=== PATIENT | female | born 1990 ===

== ENCOUNTER 2021-05-20 11:59 | Outpatient (CLI) | payer OTHER | END 2021-05-20 12:00 | disposition critical access hospital (66) | LOC: EMS 11:59 | DX: F41.9 Anxiety disorder, unspecified (principal) | CPT/HCPCS: A0425; A0427 ==

== ENCOUNTER 2021-05-20 12:38 | Emergency (ER) | payer OTHER ==
--- NOTE | 2021-05-20 12:47 | ED Physician Documentation ---
PD HPI CHEST PAIN - Stated complaint Stated Complaint: CP - Chief complaint Chief Complaint: Cardiac - History obtained from History obtained from: Family - History of Present Illness Timing - onset: How many days ago (10) Timing - onset during: Rest Timing - duration: Days (10) Timing - details: Gradual onset, Still present, Waxing and waning Quality: Pressure, Sharp, Pain Location: Left chest Radiation: Neck Worsened by: Exertion, Inspiration, Palpation Associated symptoms: Shortness of air, Nausea (today), Feeling faint / dizzy. No: Vomiting Similar symptoms before: Has not had sx before Recently seen: Clinic - Additional information Additional information: Previously well 31-year-old female reports a week long history of left-sided chest pain radiating up to her jaw and anterior chest. She has some increase in this with inspiration and if she is doing something. She has some pain to palpation of the chest wall as well. She is currently not experiencing significant pain. She is sent here from the clinic for evaluation. 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 She is on control pill. She reports that she has significant stress in her life especially recently. PD PAST MEDICAL HISTORY - Present Medications Home Medications: Ambulatory Orders Medication Instructions Recorded Confirmed Meloxicam [Mobic] 7.5 mg PO BID PRN #20 tablet 05/20/21 - Allergies Allergies/Adverse Reactions: Allergies Allergy/AdvReac Type Severity Reaction Status Date / Time No Known Drug Allergies Allergy Verified 05/20/21 12:45 PD ED PE NORMAL - Vitals Vital signs reviewed: Yes (normal ) - General General: Alert and oriented X 3, No acute distress, Well developed/nourished - HEENT HEENT: Atraumatic, PERRL, EOMI - Neck Neck: Supple, no meningeal sign, No bony TTP - Cardiac Cardiac: RRR, No murmur - Respiratory Respiratory: No respiratory distress, Clear bilaterally, Other (There is pain to palpation of the chest wall anteriorly over the sternal costal margin on the left side.) - Abdomen Abdomen: Normal bowel sounds, Soft, Non tender, Non distended, No organomegaly - Back Back: No CVA TTP, No spinal TTP - Derm Derm: Normal color, Warm and dry, No rash - Extremities Extremities: No deformity, No edema - Neuro Neuro: Alert and oriented X 3, 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, No motor deficit, No sensory deficit, Normal speech Eye Opening: Spontaneous Motor: Obeys Commands Verbal: Oriented GCS Score: 15 - Psych Psych: Normal mood, Normal affect Results - Vitals Vitals: Vital Signs - 24 hr 05/20/21 05/20/21 12:42 15:05 Temperature 36.2 C L 36.8 C Heart Rate 72 71 Respiratory 14 14 Rate Blood Pressure 106/71 112/84 H O2 Saturation 100 100 Oxygen O2 Source Room air - EKG (time done) 1246 Rate: Rate (enter#) (66) Rhythm: NSR Ischemia: Non specific changes (borderline flattening T's) Compare to prior EKG: Old EKG unavailable ( ) Computer interpretation: Agree with computer 1323 Rate: Rate (enter#) (66) Rhythm: NSR Ischemia: Non specific changes (borderline t abnormalities) Compare to prior EKG: Unchanged from prior EKG Computer interpretation: Agree with computer - Labs Labs: Laboratory Tests 05/20/21 05/20/21 05/20/21 11:52 12:52 12:52 WBC 6.4 RBC 4.46 Hgb 13.9 Hct 41.6 MCV 93.3 MCH 31.2 H MCHC 33.4 RDW 13.1 Plt Count 275 MPV 8.4 Neut # (Auto) 3.5 Lymph # (Auto) 2.4 Bay # (Auto) 0.4 Eos # (Auto) 0.1 Baso # (Auto) 0.1 Absolute Nucleated RBC 0.00 Nucleated RBC % 0.0 D-Dimer Sodium 138 Potassium 4.2 Chloride 102 Carbon Dioxide 24 Anion Gap 12.0 BUN 15 Creatinine 0.6 Estimated GFR (MDRD) 117 Glucose 97 Calcium 9.5 Total Bilirubin 0.4 AST 23 ALT 23 Alkaline Phosphatase 42 Troponin I High Sens Total Protein 8.0 Albumin 4.6 Globulin 3.4 Albumin/Globulin Ratio 1.4 Lipase 53 H Serum HCG, Qual NEGATIVE 05/20/21 05/20/21 12:52 13:14 WBC RBC Hgb Hct MCV MCH MCHC RDW Plt Count MPV Neut # (Auto) Lymph # (Auto) Bay # (Auto) Eos # (Auto) Baso # (Auto) Absolute Nucleated RBC Nucleated RBC % D-Dimer 212.0 Sodium Potassium Chloride Carbon Dioxide Anion Gap BUN Creatinine Estimated GFR (MDRD) Glucose Calcium Total Bilirubin AST ALT Alkaline Phosphatase Troponin I High Sens < 2.3 L Total Protein Albumin Globulin Albumin/Globulin Ratio Lipase Serum HCG, Qual - Rads (name of study) chest Radiology: Prelim report reviewed (Impression: No acute pulmonary process.), EMP read indepedently, See rad report PD MEDICAL DECISION MAKING - ED course Complexity details: reviewed results, re-evaluated patient, considered differential, d/w patient ED course: 31-year-old female with a week long history of undulating left-sided chest pain radiating to her chest has chest wall tenderness she has pain with respiration and she is not in distress. Her studies including electrocardiogram chest x-ray D-dimer and troponin are all unremarkable. Departure - Departure Disposition: Home, Self Care Clinical Impression: Chest wall pain Condition: Stable Instructions: ED Chest Pain Costochondritis Follow-Up: [facility] [Provider Group] Prescriptions: Meloxicam [Mobic] 7.5 mg PO BID PRN #20 tablet PRN Reason: chest wall pain Comments: Leunamme, today it appears the pain you are having in your chest is related to inflammation in your chest wall. This usually will take 1 to 2 weeks to clear up and you can take some meloxicam in the meantime for this pain. Make sure you take this with food. Discharge Date/Time: 05/20/21 15:43
[2021-05-20 13:01] LABS: BASOPHILS # (AUTO) 0.1 10^3/uL (0.0-0.1); BASOPHILS % (AUTO) 0.8 %; EOSINOPHILS # (AUTO) 0.1 10^3/uL (0.0-0.7); EOSINOPHILS % (AUTO) 1.4 %; HCT - HEMATOCRIT 41.6 % (37.0-47.0); HGB - HEMOGLOBIN 13.9 g/dL (12.0-16.0); LYMPHOCYTES # (AUTO) 2.4 10^3/uL (1.5-3.5); LYMPHOCYTES % (AUTO) 36.6 %; MEAN CORPUSCULAR HEMOGLOBIN 31.2 pg (27.0-31.0); MEAN CORPUSCULAR HGB CONC 33.4 g/dL (32.0-36.0); MEAN CORPUSCULAR VOLUME 93.3 fL (81.0-99.0); MEAN PLATELET VOLUME 8.4 fL (7.9-10.8); MONOCYTES # (AUTO) 0.4 10^3/uL (0.0-1.0); MONOCYTES % (AUTO) 6.1 %; NEUTROPHILS # (AUTO) 3.5 10^3/uL (1.5-6.6); NEUTROPHILS % (AUTO) 54.8 %; PLT - PLATELET COUNT 275 10^3/uL (130-450); RED BLOOD COUNT 4.46 10^6/uL (4.20-5.40); RED CELL DISTRIBUTION WIDTH 13.1 % (12.0-15.0); WHITE BLOOD COUNT 6.4 x10^3/uL (4.8-10.8)
[2021-05-20 13:15] LABS: ALBUMIN 4.6 g/dL (3.2-5.5); ALBUMIN/GLOBULIN RATIO 1.4 (1.0-2.2); BILIRUBIN,TOTAL 0.4 mg/dL (0.2-1.0); CALCIUM 9.5 mg/dL (8.5-10.3); CREATININE 0.6 mg/dL (0.4-1.0); POTASSIUM 4.2 mmol/L (3.5-5.0)
[2021-05-20 13:40] LABS: HCG,QUALITATIVE BLOOD NEGATIVE
--- NOTE | 2021-05-20 14:14 | XRAY Report ---
PROCEDURE: Chest 1 View X-Ray INDICATIONS: Chest Pain TECHNIQUE: One view of the chest was acquired. COMPARISON: None FINDINGS: Surgical changes and devices: None. Lungs and pleura: No pleural effusions or pneumothorax. Lungs are clear. Mediastinum: Mediastinal contours appear normal. Heart size is normal. Bones and chest wall: No suspicious bony lesions. Overlying soft tissues appear unremarkable. IMPRESSION: No acute pulmonary process. Reviewed by: Kaylah Nicole MD on 05/20/2021 2:12 PM PST Approved by: Kaylah Nicole MD on 05/20/2021 2:12 PM PST Station ID: [id number]
[2021-05-20 15:06] VITALS: BP 112/84
== END 2021-05-20 15:43 | disposition home or self-care (01) ==
LOC: ED 12:38
DX: R07.89 Other chest pain (principal)
CPT/HCPCS: 36415; 80053; 83690; 84484; 84703; 85025; 85379; 93005; 99284

== ENCOUNTER 2021-07-22 08:00 | Outpatient (CLI) | payer OTHER ==
[2021-07-22 16:55] LABS: BILIRUBIN,URINE NEGATIVE (NEGATIVE); GLUCOSE, URINE (UA) NEGATIVE (NEGATIVE); KETONES,URINE (UA) NEGATIVE (NEGATIVE); LEUKOCYTE ESTERASE, URINE NEGATIVE (NEGATIVE); NITRITE,URINE NEGATIVE (NEGATIVE); OCCULT BLOOD,URINE NEGATIVE (NEGATIVE); PH,URINE 7.5 PH (5.0-7.5); PROTEIN,URINE NEGATIVE (NEGATIVE); UROBILINOGEN,URINE 0.2 (NORMAL) E.U./dL (NORMAL)
[2021-07-22 17:14] LABS: CLARITY,URINE SL. CLOUDY (CLEAR)
[2021-07-22 17:44] LABS: AMORPHOUS SEDIMENT,UR Few /LPF; BACTERIA,URINE None Seen /HPF (None Seen); RBC,URINE 0-5 /HPF (0-5); SQUAMOUS EPITHELIAL CELL,UR RARE Squamous (<= Few); WBC,URINE 0-3 /HPF (0-5)
== END 2021-07-22 23:59 ==
LOC: LAB 08:00
PROVIDERS: ATTEND Nurse Practitioner Obstetrics & Gynecology
DX: Z32.01 Encounter for pregnancy test, result positive (principal)
CPT/HCPCS: 81001; 87086

== ENCOUNTER 2021-08-04 13:36 | Outpatient (CLI) | payer OTHER ==
--- NOTE | 2021-08-04 17:02 | Ultrasound Report ---
PROCEDURE: OB First Trimester INDICATIONS: POSITIVE TEST, DATING OUTSIDE/PRIOR DATING DATA: Last menstrual period (LMP): Unknown. LMP-based estimated date of delivery (SARA): Not applicable. First dating scan (date and location): 08/07/2021. Estimated date of delivery (SARA) from first dating scan: 03/03/2022. The below data below was generated using the ultrasound SARA of 03/03/2022 TECHNIQUE: Real-time scanning was performed of the fetus and maternal pelvic organs, with image documentation. COMPARISON: None FINDINGS: Embryo: Single living intrauterine gestation with estimated sonographic gestational age of approxima tely 10 weeks and 0 days based off crown-rump length measurement of 3.14 cm. Normal yolk sac. No elisabeth gestational hemorrhage. Heart rate: 166 bpm. Measurement variability in dating: +/- 4 weeks by LMP, +/- 7 days by mean sac diameter (use before 6 weeks gestation if crown-rump length not able to be measured), +/- 5 days by crown-rump length (6-12 weeks gestation). Maternal organs: Ovaries appear unremarkable.. IMPRESSION: Single living intrauterine gestation with estimated sonographic gestational age of approximately 10 w eeks and 0 days based off crown-rump length measurement. Estimated date of delivery is approximately 03/03/2022 Recommend continued clinical surveillance and follow-up routine second trimester anatomic scree ruma survey. Reviewed by: Jonathon Poe MD on 08/04/2021 5:01 PM PST Approved by: Jonathon Poe MD on 08/04/2021 5:01 PM PST Station ID: [id number]
== END 2021-08-04 13:37 | disposition home or self-care (01) ==
LOC: DI 13:36
PROVIDERS: ATTEND Nurse Practitioner Obstetrics & Gynecology
DX: Z32.01 Encounter for pregnancy test, result positive (principal); Z36.89 Encounter for other specified antenatal screening
CPT/HCPCS: 36415; 85025; 86592; 86762; 86787; 86803; 86850; 86900; 86901; 87340; 87389

== ENCOUNTER 2021-08-05 15:00 | Outpatient (CLI) | payer OTHER ==
[2021-08-06 22:01] LABS: CHLAMYDIA TRACHOMATIS DNA NEGATIVE (NEGATIVE); NEISSERIA GONORRHOEAE DNA NEGATIVE (NEGATIVE); TRICHOMONAS VAGINALIS DNA NEGATIVE (NEGATIVE)
== END 2021-08-05 23:59 | disposition home or self-care (01) ==
LOC: LAB.WC 15:00
PROVIDERS: ATTEND Nurse Practitioner Obstetrics & Gynecology
DX: Z11.3 Encounter for screening for infections with a predominantly sexual mode of transmission (principal)
CPT/HCPCS: 87491; 87591; 87661

== ENCOUNTER 2021-10-02 14:30 | Outpatient (CLI) | payer OTHER ==
[2021-10-02 15:05] LABS: ALBUMIN 3.8 g/dL (3.2-5.5); ALBUMIN/GLOBULIN RATIO 1.1 (1.0-2.2); BILIRUBIN,TOTAL 0.4 mg/dL (0.2-1.0); CALCIUM 8.6 mg/dL (8.5-10.3); CREATININE 0.5 mg/dL (0.4-1.0); POTASSIUM 3.5 mmol/L (3.5-5.0); TOTAL PROTEIN 7.2 g/dL (6.7-8.2)
== END 2021-10-02 14:31 | disposition home or self-care (01) ==
LOC: LAB 14:30
PROVIDERS: ATTEND Obstetrics & Gynecology
DX: O26.899 Other specified pregnancy related conditions, unspecified trimester (principal); L29.9 Pruritus, unspecified
CPT/HCPCS: 36415; 80053; 82542

== ENCOUNTER 2023-03-05 12:52 | Emergency (ER) | payer OTHER ==
[2023-03-05 13:11] VITALS: BP 123/76; O2SAT 100
--- NOTE | 2023-03-05 13:22 | ED Physician Documentation ---
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 denies: Vomiting, Diarrhea Skin: denies: Rash Musculoskeletal: reports: Neck pain (mild but has good ROm of the neck.) Neurologic: reports: Generalized weakness, Headache. denies: Focal weakness, Numbness, Near syncope, Confused, Altered mental status PD PAST MEDICAL HISTORY - Past Medical History Cardiovascular: None Respiratory: None Endocrine/Autoimmune: None - Present Medications Home Medications: Ambulatory Orders Medication Instructions Recorded Confirmed Meloxicam [Mobic] 7.5 mg PO BID PRN #20 tablet 05/20/21 HYDROcod/ACETAM 5/325 [[place] 5/325] 1 ea PO Q6H PRN #10 tablet 03/05/23 Lidocaine Viscous 2% [Xylocaine 5 ml PO Q4H PRN #100 ml 03/05/23 Viscous 2%] Nirmatrelvir/Ritonavir [Paxlovid] 3 tab PO BID 5 Days #1 kit 03/05/23 Ondansetron Odt [Zofran] 4 mg TL Q6H PRN #10 tablet 03/05/23 diphenhydrAMINE ELIXIR [Benadryl 12.5 mg PO Q6H PRN #120 ml 03/05/23 Elixir] - Allergies Allergies/Adverse Reactions: Allergies Allergy/AdvReac Type Severity Reaction Status Date / Time Sulfa (Sulfonamide Allergy Dizziness Verified 03/05/23 12:56 Antibiotics) PD ED PE NORMAL - Vitals Vital signs reviewed: Yes - General General: Alert and oriented X 3, Well developed/nourished - HEENT HEENT: Moist mucous membranes, Pharynx benign - Neck Neck: Supple, no meningeal sign, No adenopathy - Cardiac Cardiac: No murmur. No: RRR (regular but tachycardic. ) - Respiratory Respiratory: Clear bilaterally - Abdomen Abdomen: Normal bowel sounds, Soft, Non tender, Non distended - Derm Derm: Normal color, Warm and dry - Neuro Neuro: Alert and oriented X 3, No motor deficit, Normal speech Results - Vitals Vitals: Vital Signs - 24 hr 03/05/23 12:56 Temperature 37.3 C Heart Rate 110 H Respiratory 16 Rate Blood Pressure 123/76 O2 Saturation 100 Oxygen O2 Source Room air - Labs Labs: Laboratory Tests 03/05/23 03/05/23 14:03 14:03 Nasal Adenovirus (PCR) NOT DETECTED Nasal B. parapertussis DNA (PCR) NOT DETECTED Nasal Coronavir 229E PCR NOT DETECTED Nasal Coronavir HKU1 PCR NOT DETECTED Nasal Coronavir NL63 PCR NOT DETECTED Nasal Coronavir OC43 PCR NOT DETECTED Nasal Enterovir/Rhinovir PCR NOT DETECTED Nasal Influenza B PCR NOT DETECTED Nasal Influenza A PCR NOT DETECTED Nasal Parainfluen 1 PCR NOT DETECTED Nasal Parainfluen 2 PCR NOT DETECTED Nasal Parainfluen 3 PCR NOT DETECTED Nasal Parainfluen 4 PCR NOT DETECTED Nasal RSV (PCR) NOT DETECTED Nasal B.pertussis DNA PCR NOT DETECTED Nasal C.pneumoniae (PCR) NOT DETECTED Y[facility] Human Metapneumo PCR NOT DETECTED Nasal M.pneumoniae (PCR) NOT DETECTED Nasal SARS-CoV-2 (PCR) DETECTED A Group A Strep Rapid Negative PD Medical Decision Making - ED course Complexity details: reviewed results (rapid strep negative. Viral PCR showing positive for COVID. 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 Off work at least 3 days due to illness/symtpoms. Patient is otherwise healthy. Symptoms for 2-3 days. She is familiar with Paslovid from her work adn would like to get Rx for it. ), considered differential (eval for strep due to throat pain. Can give PO meds for it. Can get resp viral panel. 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 ), d/w patient Departure - Departure Disposition: 01 Home, Self Care Clinical Impression: Upper respiratory infection, COVID-19 Condition: Stable Record reviewed to determine appropriate education?: Yes Follow-Up: [facility] [Provider Group] Prescriptions: diphenhydrAMINE ELIXIR [Benadryl Elixir] 12.5 mg PO Q6H PRN #120 ml PRN Reason: Pain 1-4 HYDROcod/ACETAM 5/325 [[place] 5/325] 1 ea PO Q6H PRN #10 tablet PRN Reason: Pain Nirmatrelvir/Ritonavir [Paxlovid] 3 tab PO BID 5 Days #1 kit Lidocaine Viscous 2% [Xylocaine Viscous 2%] 5 ml PO Q4H PRN #100 ml PRN Reason: Pain Ondansetron Odt [Zofran] 4 mg TL Q6H PRN #10 tablet PRN Reason: Nausea / Vomiting Comments: Off work today and the next 2 days. Your rapid strep test is negative. We will do a culture of that and call you in a couple of days if there is any signs of bacterial growth. Meanwhile we will presume a viral illness. Stay well-hydrated. Tylenol or ibuprofen for pains or fevers/chills. Your viral respiratory panel is positive for COVID. I presume you will need to be off work for several days what ever the policy is for where you work. Comm only that is 5 days. For your sore throat, you can use the Benadryl liquid combined with some lidocaine to help with that. Regular Tylenol ibuprofen as well. Ondansetron/Zofran if needed for nausea. You can do the antiviral medication as well. I sent your prescriptions to the [facility] pharmacy. Forms: PCP List, Activity restrictions Discharge Date/Time: 03/05/23 15:25
[2023-03-05] MEDS ORDERED: IBUPROFEN 600 MG TABLET PO STA (13:36)
[2023-03-05] MEDS ORDERED: diphenhydrAMINE ELIXIR 25 MG/10 ML UDC PO STA (13:36)
[2023-03-05 14:21] LABS: RAPID STREP SCREEN Negative (Negative)
[2023-03-05 15:02] LABS: B. PARAPERTUSSIS- RESP PCR PAN NOT DETECTED; B. PERTUSSIS- RESP PCR PANEL NOT DETECTED; C. PNEUMONIAE- RESP PCR PANEL NOT DETECTED; CORONAVIRUS 229E-RESP PCR NOT DETECTED; CORONAVIRUS HKU1-RESP PCR NOT DETECTED; CORONAVIRUS NL63-RESP PCR NOT DETECTED; CORONAVIRUS OC43-RESP PCR NOT DETECTED; HUMAN METAPNEUMOVIRUS NOT DETECTED; INFLUENZA A- RESP PCR PANEL NOT DETECTED; INFLUENZA B - RESP PCR PANEL NOT DETECTED; M. PNEUMONIAE- RESP PCR PANEL NOT DETECTED; PARAINFLUENZA VIRUS 1 NOT DETECTED; PARAINFLUENZA VIRUS 2 NOT DETECTED; PARAINFLUENZA VIRUS 3 NOT DETECTED; PARAINFLUENZA VIRUS 4 NOT DETECTED; RHINOVIRUS/ENTEROVIRUS NOT DETECTED; RSV- RESP PCR PANEL NOT DETECTED
[2023-03-05 15:05] LABS: SARS-CoV-2 -RESP PCR PANEL DETECTED
== END 2023-03-05 15:25 | disposition home or self-care (01) ==
LOC: ED 12:52
DX: U07.1 COVID-19 (principal); J06.9 Acute upper respiratory infection, unspecified
CPT/HCPCS: 87070; 87430; 87633; 99283; A9270